=== PATIENT | female | born 1990 | race Caucasian/White ===

== ENCOUNTER 2021-05-27 04:18 | Emergency (ER) | payer SELFPAY ==
--- NOTE | 2021-05-27 04:34 | ED Psychosocial ---
General Stated Complaint: ABDOMINAL PAIN History of Present Illness Date Seen by Provider: May 27, 2021 Time Seen by Provider: 04:33 Initial Comments 31-year-old female brought in by EMS. EMS was called because patient was walking to the ER because she thinks she is and having problems. Upon arrival patient claims she is nobody will believe her. Patient provides me very little information. Patient states that "guys are evil" that whenever I attempted to talk to her asked her many questions she covers her eyes and ears. Patient at one point tells the nurse that she know she got because she took a home test and was told one time she had a UTI. Patient also states that she sees aliens and has to impregnate her. Patient does not want to harm herself or anybody else. Allergies and Home Medications Patient Home Medication List Home Medication List Reviewed: Yes Review of Systems Constitutional: see HPI EENTM: no symptoms reported Respiratory: no symptoms reported Cardiovascular: no symptoms reported Gastrointestinal: see HPI Genitourinary: see HPI Musculoskeletal: no symptoms reported Skin: no symptoms reported Psychiatric/Neurological: See HPI Physical Exam Vital Signs - First Documented 05/27/21 04:25 Temp 36.9 Pulse 102 Resp 20 B/P (MAP) 179/116 (137) Pulse Ox 97 O2 Delivery Room Air Capillary Refill : Height, Weight, BMI Height: '" Weight: lbs. oz. kg; BMI Method: General Appearance: obese, other (Patient is not an distress but becomes very anxious and seems to have difficulty dealing with much stress.) Respiratory: no respiratory distress Cardiovascular: regular rate, rhythm, no edema Gastrointestinal: other (Refused exam) Extremities: normal range of motion Neurologic/Psychiatric: no motor/sensory deficits, alert Appearance/Memory: impaired insight Behavior/Eye Contact: avoids eye contact Thoughts/Hallucinations: delusions, paranoid, other (Patient's appears to have schizo phrenic type thoughts) Skin: normal color, warm/dry Progress/Results/Core Measures Results/Orders Lab Results Laboratory Tests Test 05/27/21 05:10 05/27/21 06:00 Range/Units Serum Test, Qualitative NEGATIVE NEGATIVE Urine Color DARK YELLOW Urine Clarity SLIGHTLY CLOUDY Urine pH 6.0 5-9 Urine Specific [place] >=1.030 1.016-1.022 Urine Protein NEGATIVE NEGATIVE Urine Glucose (UA) NEGATIVE NEGATIVE Urine Ketones NEGATIVE NEGATIVE Urine Nitrite NEGATIVE NEGATIVE Urine Bilirubin NEGATIVE NEGATIVE Urine Urobilinogen 0.2 < = 1.0 MG/DL Urine Leukocyte Esterase NEGATIVE NEGATIVE Urine RBC (Auto) NEGATIVE NEGATIVE Urine RBC 2-5 H /HPF Urine WBC 10-25 H /HPF Urine Squamous Epithelial Cells 25-50 H /HPF Urine Crystals NONE /LPF Urine Bacteria MODERATE H /HPF Urine Casts NONE /LPF Urine Mucus LARGE H /LPF Urine Culture Indicated NO Urine Opiates Screen NEGATIVE NEGATIVE Urine Oxycodone Screen NEGATIVE NEGATIVE Urine Methadone Screen NEGATIVE NEGATIVE Urine Propoxyphene Screen NEGATIVE NEGATIVE Urine Barbiturates Screen NEGATIVE NEGATIVE Ur Tricyclic Antidepressants Screen NEGATIVE NEGATIVE Urine Phencyclidine Screen NEGATIVE NEGATIVE Urine Amphetamines Screen NEGATIVE NEGATIVE Urine Methamphetamines Screen NEGATIVE NEGATIVE Urine Benzodiazepines Screen NEGATIVE NEGATIVE Urine Cocaine Screen NEGATIVE NEGATIVE Urine Cannabinoids Screen POSITIVE H NEGATIVE My Orders Orders - FELIPE MAHAN DO Urine Bedside (05/27/21 04:31) Ua Culture If Indicated (05/27/21 04:31) Hcg,Qualitative Serum (05/27/21 05:13) Drug Screen Stat (Urine) (05/27/21 06:19) Vital Signs/I&O 05/27/21 04:25 Temp 36.9 Pulse 102 Resp 20 B/P (MAP) 179/116 (137) Pulse Ox 97 O2 Delivery Room Air Progress Progress Note : Progress Note Patient with negative UA and negative test. Patient does have positive marijuana in her urine drug screen. I feel the patient likely has some underlying schizophrenia. She does not seem a threat to harm her self or others at this time. Patient provided me with very limited information but did provide much more information to the nurse. Patient does not like men, states they're evil and would usually just cover her eyes and ears start rocking and ignore further communication with me. She did decline most physical exam. Patient requested discharge and was stable. Departure Impression Primary Impression: Abdominal discomfort Disposition: 01 HOME, SELF-CARE Condition: Stable Departure-Patient Inst. Referrals: NO,LOCAL PHYSICIAN (PCP/Family) Primary Care Physician Patient Instructions: Abdominal Pain, Adult ED Add. Discharge Instructions: follow up with primary care provider FELIPE MAHAN DO May 27, 2021 04:34
[2021-05-27 06:05] LABS: BACTERIA,URINE MODERATE /HPF; BILIRUBIN,URINE NEGATIVE (NEGATIVE); CLARITY,URINE SLIGHTLY CLOUDY; COLOR,URINE DARK YELLOW; GLUCOSE, URINE (UA) NEGATIVE (NEGATIVE); KETONES,URINE NEGATIVE (NEGATIVE); LEUKOCYTE ESTERASE ,URINE NEGATIVE (NEGATIVE); NITRITE,URINE NEGATIVE (NEGATIVE); PROTEIN,URINE NEGATIVE (NEGATIVE); SQUAMOUS EPITHELIAL CELL,UR 25-50 /HPF
[2021-05-27 06:25] LABS: AMPHETAMINE SCREEN, URINE NEGATIVE (NEGATIVE); BARBITURATE SCREEN URINE NEGATIVE (NEGATIVE); BENZODIAZEPINES SCREEN URINE NEGATIVE (NEGATIVE); CANNABINOID SCREEN, URINE POSITIVE (NEGATIVE); COCAINE SCREEN URINE NEGATIVE (NEGATIVE); METHADONE STAT NEGATIVE (NEGATIVE); METHAMPHETAMINE SCREEN URINE S NEGATIVE (NEGATIVE); OPIATE SCREEN URINE NEGATIVE (NEGATIVE); OXYCODONE STAT NEGATIVE (NEGATIVE); PROPOXYPHENE STAT NEGATIVE (NEGATIVE); TRICYCLIC ANTIDEPRESSANTS SCRE NEGATIVE (NEGATIVE)
[2021-05-27 06:28] VITALS: BP 179/116
== END 2021-05-27 06:28 | disposition home or self-care (01) ==
LOC: ER FS 04:24
DX: R10.9 Unspecified abdominal pain (principal); R78.4 Finding of other drugs of addictive potential in blood; E66.9 Obesity, unspecified; Z32.02 Encounter for pregnancy test, result negative
CPT/HCPCS: 36415; 80306; 81000; 84703; 99283